=== PATIENT | female | born 1975 | race Hispanic/Latino ===

== ENCOUNTER 2023-09-25 13:28 | Day surgery (SDC) | payer OTHER, SELFPAY ==
[2023-09-25] VITALS (8 sets, daily range): BP systolic 72–118; BP diastolic 45–85; PULSE 86–94; RESP 14–18; TEMP 36.1–36.4; O2SAT 98–100
--- NOTE | 2023-09-25 | PATH_ITS ---
[facility] Accession Number: [id number] No. of containers..01 Tissue . 01 Material submitted: . stomach - ANTRUM . 01 Diagnosis: ANTRUM: Gastric mucosa with mild chronic inflammation. No Helicobacter organisms identified. No intestinal metaplasia, dysplasia, or malignancy identified. [facility] 10/03/20231040 Local . 01 Electronically signed: . Yossi Meza MD, Pathologist NPI- [id number] . 01 Gross description: . Received in formalin with two patient identifiers and antrum, is a single duque soft tissue fragment, 0.5 cm in greatest dimension. Submitted entirely in A1. ([id number]) /MRV 10/03/20231040 Local . 01 Microscopic: . ANTRUM: An immunohistochemical stain was performed to evaluate for Helicobacter organisms and is negative. The control stains appropriately. * This test was developed and its performance characteristics determined by [employer]. It has not been cleared or approved by the U.S. Food and Drug Administration. The FDA has determined that such clearance or approval is not necessary. This test is used for clinical purposes. It should not be regarded as investigational or for research. . 01 Pathologist provided ICD-10: K29.50 . 01 CPT . 132215, [id number] Specimen Comment: A courtesy copy of this report has been sent to [phone] Performed at: [address] [address], [place], [place] [id number] MD Yossi Meza MD Phone: [phone]
--- NOTE | 2023-09-25 14:41 | P.HP_ITS ---
History of Present Illness History of Present Illness Date Patient Seen: 09/25/23 Time Patient Seen: 14:41 Chief complaint: SDC Narrative: I reviewed my recent office note. No significant changes with the exception of the patient experiencing vomiting and a tendency towards headache with a bowel prep. She did not implement any of the enemas and other things that would help potentially with evacuation. She does report that she was able to get through the bowel prep and cleaned out successfully. Omeprazole has not significantly improved her reflux symptoms. EGD is pursued today to evaluate refractory reflux and exclude Barretts. Colonoscopy is pursued for colon cancer screening in the context of constipation. [facility] Social History Smoking Status: Never smoker alcohol intake: former Meds Home Medications and Allergies Home Medications Medication Instructions Recorded Confirmed Type acetaminophen 500 mg tablet 1,000 mg PO Q6H PRN Headache 09/25/23 09/25/23 History empagliflozin 10 mg tablet 10 mg PO DAILY 09/25/23 09/25/23 History (Jardiance) Allergies Allergy/AdvReac Type Severity Reaction Status Date / Time REYNALDO Inhibitors Allergy Intermediate Anaphylaxis Verified 09/25/23 14:04 diphenhydramine Allergy Intermediate Hives Verified 09/25/23 14:04 pioglitazone Allergy Intermediate Hives Verified 09/25/23 14:04 sitagliptin Allergy Intermediate Hives Verified 09/25/23 14:04 Review of Systems Review of Systems ROS: Yes All systems reviewed with the patient and are negative except as otherwise documented Exam Vital Signs (past 8 hours): - 09/25/23 14:17 Temperature 96.9 F L Pulse Rate 93 H Respiratory Rate 18 Blood Pressure 103/72 Pulse Oximetry 98 Oxygen Delivery Method Room Air Oxygen Delivery Method Room Air Const General: cooperative HENTN Head: normal to inspection Eyes General: appearance normal, both eyes and all related structures Neck Neck: normal visual inspection Chest Chest: normal inspection of the chest Resp Effort & Inspection: normal respiratory effort Cardio Rate: regular rate GI Inspection: normal to inspection Skin General: no rashes or lesions noted Neuro General: patient alert and patient awake Extrem General: normal to inspection and no pedal edema Psych Appearance: grossly normal Assessment & Plan Assessment & Plan narrative: 48-year-old female with chronic gastroesophageal reflux and constipation. She reports for diagnostic EGD and exclusion of Barretts plus colon cancer screening. EGD and colonoscopy are pursued.
--- NOTE | 2023-09-25 14:43 | PM.PREOP ---
Pre-operative Note Interval Note History & Physical reviewed/Exam performed by Physician: Yes Changes to H&P: No ASA Class (for procedural sedation): II
--- NOTE | 2023-09-25 16:23 | PM.OP.EC ---
Operative Date/Time/Diagnoses Date of procedure: 09/25/23 Time of procedure: 16:23 Pre-op diagnosis: Refractory GERD, constipation, colon cancer screening Post-op diagnosis: same Procedure & Clinicians Study performed: EGD with biopsies and colonoscopy Same procedure as scheduled: Yes Indications: Refractory GERD, constipation, colon cancer screening Surgeon: Addison Taylor Procedure Notes SCOAP/Timeout: Done Procedure in detail: After the risks and benefits were explained, written and verbal informed consent was obtained. The patient was brought into the procedure room and placed into the left lateral decubitus position. Please see anesthesia note for sedation details. The scope was introduced into the mouth through the bite block and advanced under direct visualization to the 2nd portion of the duodenum. The scope was slowly withdrawn carefully examining the mucosa for any defects or lesions. Retroflexed views were accomplished in the stomach. The stomach was decompressed, the scope was then removed from the patient who tolerated the procedure well. The patient was then turned around. A digital rectal examination was accomplished. The scope was introduced into the rectum and advanced to the cecum as identified by the appendiceal orifice and ileocecal valve. The terminal ileum was interrogated. The scope was then slowly withdrawn to carefully examine the mucosa for any defects or lesions. Multiple direct views were made through the dentate line for exclusion of pathology. The colon was decompressed. The scope was removed from the patient who tolerated the procedure well. Pediatric colonoscope Bowel prep fair; with copious amounts of irrigation and suction this was rendered adequate. Scope withdrawal time: 7 minutes Sedation minutes: 30 Complications: none Impression: 1. Duodenal: This was visually normal from the bulb through to the 2nd portion. 2. Stomach: Minimal gastropathy was appreciated in the stomach and biopsies from the antrum were acquired for exclusion of H pylori or other pathology. Otherwise retroflexed views of the LES were unremarkable. 3. Esophagus: The squamocolumnar junction correlated with the top of the gastric folds. GEJ was at approximately 34 cm from the incisors. The patient had evidence of LA grade B erosive esophagitis. In the midesophagus, there were some scattered scant off-white plaques. Several of these were acquired by way of a cytology brush and submitted for AUGUSTINE wet prep analysis. 4. Terminal ileum: This was visually normal. 5. Colon: No significant polyps mass lesions or inflammatory features identified throughout. Was a mildly tortuous sigmoid colon. Otherwise visually normal exam. Endoscopic diagnosis 1. LA grade B erosive esophagitis 2. Mild gastropathy 3. Possible low-grade esophageal candidiasis 4. Visually unremarkable colonoscopy and terminal ileoscopy. Post-procedure Plan for aftercare: 1. Await histology. 2. Consider temporary increase in omeprazole up to twice daily for the next 2 weeks in order to heal the distal esophagus. From there, consider an attempt to taper back down to once daily dosing thereafter. 3. Follow up GI clinic 4. If Ruth Ann is identified, 14 day course of fluconazole will be prescribed. Please contact our office in the next 24 hours to learn of the wet prep results. 5. Repeat colonoscopy 10 years. 6. Consider a more aggressive bowel regimen as discussed in the office starting with once or twice daily fiber supplementation. Disposition: PACU
[2023-09-25] MEDS: INSULIN LISPRO 100 UNIT/ML 3ML VIAL SUBCUT (16:37)
[2023-09-25] MEDS: LACTATED RINGERS 1,000 ML 150 ML IV (16:40)
--- NOTE | 2023-09-25 17:21 | SUR.PHASEII ---
Pt to be discharged with . Pt denies any complaints states she has a slight headache. But will take tylenol when she gets home.
== END 2023-09-25 17:22 | disposition home or self-care (01) ==
PROVIDERS: Referring Provider Internal Medicine Gastroenterology; Visit Provider Internal Medicine Gastroenterology
PROC: 0DJ08ZZ Inspection of Upper Intestinal Tract, Via Natural or Artificial Opening Endoscopic (ICD-10-PCS; CPT 45378; principal; 2023-09-25 14:30)
PROC: 0DJD8ZZ Inspection of Lower Intestinal Tract, Via Natural or Artificial Opening Endoscopic (ICD-10-PCS; CPT 45378; 2023-09-25 14:30)
DX: Z12.11 Encounter for screening for malignant neoplasm of colon (principal); K21.9 Gastro-esophageal reflux disease without esophagitis; K20.80 Other esophagitis without bleeding; K31.9 Disease of stomach and duodenum, unspecified; K29.50 Unspecified chronic gastritis without bleeding
CPT/HCPCS: 45378; 43239; 82962; 87220; J1815; J2704

== ENCOUNTER 2024-11-14 17:45 | Emergency (ER) | payer OTHER, SELFPAY ==
[2024-11-14 18:11] VITALS: BP 102/66; PULSE 88; RESP 20; TEMP 36.4; O2SAT 98; BMI 30.2
--- NOTE | 2024-11-14 18:18 | DI.RAD.S_ITS ---
PROCEDURE: XR CHEST 1V INDICATIONS: Chest Pain TECHNIQUE: One view of the chest was acquired. COMPARISON: None. FINDINGS: Surgical changes and devices: None. Lungs and pleura: Lungs are clear. No pleural effusions or pneumothorax. Mediastinum: Mediastinal contours appear normal. Heart size is normal. Bones and chest wall: No suspicious bony lesions. Overlying soft tissues appear unremarkable. IMPRESSION: No acute cardiopulmonary abnormality is seen. Dictated by: Justice Hensley M.D. on 11/14/2024 at 19:10 Approved by: Justice Hensley M.D. on 11/14/2024 at 19:11
--- NOTE | 2024-11-14 18:18 | EKG_ITS ---
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
--- NOTE | 2024-11-14 18:46 | ED.CHESTPAIN ---
HPI - Chest Pain General Chief Complaint: Chest Pain Stated Complaint: Chest Pain, SOB x7days Time Seen by Provider: 11/14/24 17:50 Mode of arrival: Ambulatory History of Present Illness HPI narrative: 49-year-old female history of type 2 diabetes presents with midsternal chest pain since Monday while at work described as soreness radiating to the left shoulder region for which she did not take anything. She would have 3-4 episodes of this every day that will last for a few minutes but noticed also that when she raises her left shoulder above shoulder level that it reproduces the chest pain. Patient reports having 7 8 out of 10 chest pain at this time for which she did not take anything prior to arrival. She was seen at urgent care earlier in the week or they did an EKG and gave her some aspirin at that time. She did have a treadmill stress test to 3 years ago when she was in [place] that was apparently normal. Other than what is stated 14 point review of system is negative. Related Data Home Medications ?Medication ?Instructions ?Recorded ?Confirmed acetaminophen 500 mg tablet 1,000 mg PO Q6H PRN Headache 09/25/23 02/20/24 empagliflozin 10 mg tablet 10 mg PO DAILY 09/25/23 02/20/24 (Jardiance) Previous Rx's ?Medication ?Instructions ?Recorded amoxicillin 875 mg-potassium 1 tab PO BID #20 tabs 02/20/24 clavulanate 125 mg tablet benzonatate 100 mg capsule 100 mg PO BID-TID PRN cough #30 02/20/24 caps dulaglutide 0.75 mg/0.5 mL 0.75 mg (0.5 mL) SUBCUT QWEEK #2 mL 03/13/24 subcutaneous pen injector (Trulicity) Allergies Allergy/AdvReac Type Severity Reaction Status Date / Time REYNALDO Inhibitors Allergy Intermediate Anaphylaxis Verified 11/14/24 18:11 diphenhydramine Allergy Intermediate Hives Verified 11/14/24 18:11 pioglitazone Allergy Intermediate Hives Verified 11/14/24 18:11 sitagliptin Allergy Intermediate Hives Verified 11/14/24 18:11 metformin AdvReac Mild pancreatiti Verified 11/14/24 18:11 s LISINOPRIL AdvReac Mild Anaphylaxis Uncoded 11/14/24 18:11 Review of Systems Review of Systems ROS Unobtainable: All systems reviewed & are unremarkable except as noted in HPI and below Patient History Social History Smoking Status: Never smoker alcohol intake: former Smoking Status: Never smoker Exam Narrative Exam Narrative: GENERAL: [49] year old patient appears stated age. Well-developed patient, in mild distress. HEAD: Atraumatic. Normocephalic. EYES: Pupils equal round and reactive. Extraocular motions intact. No scleral icterus. No injection or drainage. ENT: Nose without bleeding, purulent drainage. Throat without erythema, tonsillar hypertrophy or exudate. Airway patent. NECK: Trachea midline. Non tender CARDIOVASCULAR: Regular rate and rhythm without murmurs, gallops, or rubs. Midsternal chest palpation reproducible with pain on palpation RESPIRATORY: Clear to auscultation. Breath sounds equal bilaterally. No wheezes, rales, or rhonchi. GASTROINTESTINAL: Abdomen soft, non-tender, nondistended. EXTREMITIES: No edema or joint tenderness. BACK: Nontender without deformity or crepitance. No flank tenderness. NEURO: AOx3. SKIN: No rash or erythema of visible areas Initial Vital Signs Initial Vital Signs: Vital Signs Temperature 97.6 F 11/14/24 18:11 Pulse Rate 88 11/14/24 18:11 Respiratory Rate 20 11/14/24 18:11 Blood Pressure 102/66 11/14/24 18:11 Pulse Oximetry 98 11/14/24 18:11 Oxygen Delivery Method Room Air 11/14/24 18:11 Scores HEART Score Heart Score history: Slightly Suspicious Heart Score EKG: Normal Heart Score Age: 45-64 years old Heart Score risk factors: 1-2 risk factors Heart Score troponin: < or = to normal limit Heart Score Total: 2 Course Orders Ordered: ED Orders 11/14/24 18:18 XR chest 1V Stat EKG-12 Lead Stat 11/14/24 18:43 Complete Blood Count AUTO DIFF Stat Comprehensive Metabolic Panel Stat Lipase Stat Magnesium Stat NT-proBNP (BNP-Adult 18+) Stat PTT Partial Thromboplastin Louie Stat Prothrombin Time INR Stat Troponin & CK Cardiac Panel Stat 11/14/24 21:09 Troponin I Stat Discontinued Medications Aspirin (Aspirin 81 Mg Chew Tab) 324 mg PO NOW ONE Stop: 11/14/24 18:19 Last Admin: 11/14/24 18:50 Dose: 324 mg Documented By: MPO Vital Signs Vital signs: Vital Signs - 8 hr 11/14/24 18:11 Temperature 97.6 F Pulse Rate 88 Respiratory Rate 20 Blood Pressure 102/66 Pulse Oximetry 98 Oxygen Delivery Method Room Air MDM - Chest Pain Lab Data 11/14/24 18:43 11/14/24 18:43 Labs: Lab Results 11/14/24 11/14/24 Range/Units 18:43 21:09 WBC 5.3 (4.5-11.0) X10^3/uL RBC 4.46 (4.0-5.2) X10^6/uL Hgb 13.0 (12.0-16.0) g/dL Hct 37.3 (36-46) % MCV 83.7 (80-100) fL MCH 29.1 (26-34) PG MCHC 34.7 (30-36) % RDW 14.9 H (11.6-14.8) % Plt Count 175 (150-400) X10^3/uL Neut % (Auto) 52.5 (50-75) % Lymph % (Auto) 38.1 (25-40) % Bonner % (Auto) 6.2 (3-14) % Eos % (Auto) 2.5 (2-4) % Baso % (Auto) 0.7 (0-2) % Neut # (Auto) 2800 (2654-6559) /uL Lymph # (Auto) 2000 (3095-4318) /uL Bonner # (Auto) 300 (0-900) /uL Eos # (Auto) 100 (0-450) /uL Baso # (Auto) 0 (0-100) /uL PT 11.2 (9.4-12.5) SECONDS INR 1.0 (0.9-1.3) APTT 28 (25.1-36.5) SECONDS Sodium 141 (137-145) mmol/L Potassium 4.3 (3.4-5.1) mmol/L Chloride 104 (98-107) mmol/L Carbon Dioxide 29 (22-32) mmol/L BUN 14 (7-17) mg/dL Creatinine 0.65 (0.52-1.04) mg/dL Estimated GFR > 60 (>60) mL/min BUN/Creatinine Ratio 21.5 (6-22) Glucose 111 H (70-99) mg/dL Calcium 9.5 (8.4-10.2) mg/dL Magnesium 1.9 (1.6-2.3) mg/dL Total Bilirubin 1.0 (0.2-1.3) mg/dL AST 31 (14-36) IU/L ALT 23 (<35) IU/L Alkaline Phosphatase 105 (38-126) U/L Total Creatine Kinase 79 (30-135) U/L Troponin I < 0.012 < 0.012 (0.01-0.034) ng/mL NT-Pro-B Natriuret Pep 22 (<125) pg/mL Total Protein 8.3 H (6.3-8.2) g/dL Albumin 4.7 (3.5-5.0) g/dL Globulin 3.6 (1.7-4.1) g/dL Albumin/Globulin Ratio 1.3 (1.0-2.8) Lipase 79 (23-300) U/L Imaging Data Chest x-ray: Radiologist's Impression: [place] [address] XRay Report Signed Patient: Wendie Britt MR#: [id number] : 1975 Acct:[id number] Age/Sex: 49 / F Date of Service: 11/14/24 Loc: ED Accession Number: [id number] Procedure: XR chest 1V Ordering Provider: Bandar Hastings D.O. PROCEDURE: XR CHEST 1V INDICATIONS: Chest Pain TECHNIQUE: One view of the chest was acquired. COMPARISON: None. FINDINGS: Surgical changes and devices: None. Lungs and pleura: Lungs are clear. No pleural effusions or pneumothorax. Mediastinum: Mediastinal contours appear normal. Heart size is normal. Bones and chest wall: No suspicious bony lesions. Overlying soft tissues appear unremarkable. IMPRESSION: No acute cardiopulmonary abnormality is seen. ECG Data Interpretation: NSR HR 82 [place] 146 QRS [address]-t wave change NO previous EKG MDM Narrative Medical decision making narrative: Vital signs nurse triage note medication list previous ER visits and all imaging studies reviewed. Chest x-ray showed no acute process. Heart score of 2. EKG shows sinus rhythm with no STT wave changes. Two sets of troponin are normal. Differential diagnosis STEMI NSTEMI and anxiety and GERD chest wall inflammation. Patient follow up PCP next week for continuity of care. Discharge Plan Departure Patient Disposition: Home Clinical Impression: Chest pain Qualifiers: Chest pain type: chest pain on breathing Qualified Code(s): R07.1 - Chest pain on breathing Instructions: DI for Chest Pain Activity Restrictions/Additional Instructions: Return with new or worsening symptoms. Follow up PCP next week for continuity of care. Prescriptions: No Action benzonatate 100 mg capsule 100 mg PO BID-TID PRN (Reason: cough) Qty: 30 0RF amoxicillin-pot clavulanate 875-125 mg tablet 1 tab PO BID Qty: 20 0RF Trulicity 0.75 mg/0.5 mL pen injector 0.75 mg SUBCUT QWEEK Qty: 2 3RF acetaminophen 500 mg Tablet 1,000 mg PO Q6H PRN (Reason: Headache) Jardiance 10 mg tablet 10 mg PO DAILY Referrals: Sarina Leonard MD [Primary Care Provider, Family Practice] Stand Alone Forms: Patient Portal/API
[2024-11-14 18:50] LABS: Add Manual Diff / Slide Review NO; Hematocrit 37.3 % (36-46); Hemoglobin 13.0 g/dL (12.0-16.0); Lymphocytes Absolute Auto 2000 /uL (1100-4500); Mean Corpuscular HGB Conc 34.7 % (30-36); Mean Corpuscular Hemoglobin 29.1 PG (26-34); Mean Corpuscular Volume 83.7 fL (80-100); Platelet Count 175 X10^3/uL (150-400)
[2024-11-14] MEDS: ASPIRIN 81 MG CHEW TAB 324 MG PO (18:50)
[2024-11-14 18:58] LABS: INR 1.0 (0.9-1.3); Prothrombin Time 11.2 SECONDS (9.4-12.5)
[2024-11-14 19:00] LABS: PTT Partial Thromboplastin Tim 28 SECONDS (25.1-36.5)
[2024-11-14 19:02] LABS: Alanine Aminotransferase 23 IU/L (<35); Albumin 4.7 g/dL (3.5-5.0); Albumin Globulin Ratio 1.3 (1.0-2.8); Alkaline Phosphatase 105 U/L (38-126); Blood Urea Nitrogen 14 mg/dL (7-17); Calcium 9.5 mg/dL (8.4-10.2); Carbon Dioxide 29 mmol/L (22-32); Chloride 104 mmol/L (98-107); Creatine Kinase 79 U/L (30-135); Estimated Glomerular Filt Rate > 60 mL/min (>60); Globulin 3.6 g/dL (1.7-4.1); Glucose 111 mg/dL (70-99); HEMOLYSIS < 15 (0-50); Lipase 79 U/L (23-300); Magnesium 1.9 mg/dL (1.6-2.3); Potassium 4.3 mmol/L (3.4-5.1); Sodium 141 mmol/L (137-145); Total Protein 8.3 g/dL (6.3-8.2)
[2024-11-14 19:13] LABS: NT-proBNP (BNP-Adult 18+) 22 pg/mL (<125); Troponin I < 0.012 ng/mL (0.01-0.034)
[2024-11-14 21:53] LABS: Troponin I < 0.012 ng/mL (0.01-0.034)
[2024-11-14 22:31] VITALS: BP 104/64; PULSE 77; RESP 18; O2SAT 100
== END 2024-11-14 22:32 | disposition home or self-care (01) ==
PROVIDERS: Emergency Provider Family Medicine; PCP Family Medicine
DX: R07.1 Chest pain on breathing (principal)
CPT/HCPCS: 36415; 71045; 80053; 82550; 83690; 83735; 83880; 84484; 85025; 85610; 85730; 93005; 99283; 99284